=== PATIENT | female | born 1975 | race Two or more races ===

== ENCOUNTER 2023-05-09 16:09 | Emergency (ER) | payer MEDICAID ==
[~2023-05-09] VITALS: Ht 175.3 cm; Wt 78.1 kg
[2023-05-09 16:30] VITALS: BP 141/74
[2023-05-09] MEDS ORDERED: FLEET ENEMA(ADULT) 135 ML PR ONE (17:00)
[2023-05-09] MEDS ORDERED: LACTULOSE 20Gm/30ML SOLN PO ONE (17:00)
[2023-05-09] MEDS ORDERED: DOCU-94 PO (18:07)
[2023-05-09] MEDS ORDERED: LACT10SO3 PO (18:07)
== END 2023-05-09 20:20 | disposition left against medical advice (07) ==
LOC: ER 16:09
DX: K59.00 Constipation, unspecified (principal); Z03.821 Encounter for observation for suspected ingested foreign body ruled out
CPT/HCPCS: 74018

== ENCOUNTER 2023-05-15 13:06 | Emergency (ER) | payer MEDICAID ==
[~2023-05-15 13:06] MED LIST: DOCU-94 PO; LACT10SO3 PO
== END 2023-05-15 14:18 | disposition left against medical advice (07) ==
LOC: ER 13:06
DX: K59.00 Constipation, unspecified (principal); Z53.21 Procedure and treatment not carried out due to patient leaving prior to being seen by health care provider